=== PATIENT | female | born 1940 | race Caucasian/White ===

== ENCOUNTER 2016-11-05 13:02 | Emergency (ER) | payer MEDICARE ==
[~2016-11-05] VITALS: Ht 177.8 cm; Wt 92.8 kg
[~2016-11-05 13:02] MED LIST: CLON0.2T PO; ERYT.5%O EACH EYE; HYDR-2768 PO; PROZ40CA PO; SYNT25TA PO
[2016-11-05 13:12] VITALS: BP 132/71; PULSE 90; RESP 16; TEMP 98.5; O2SAT 94
[2016-11-05] MEDS ORDERED: ONDANSETRON ODT 4 MG TAB PO ONE (14:00)
--- NOTE | 2016-11-05 14:01 | PD ---
HPI Chief Complaint: Cold / Flu Symptoms Time Seen by Provider: 13:58 Travel History International Travel<30 days: No Contact w/Intl Traveler<30days: No Traveled to known affect area: No History of Present Illness HPI Patient comes in complaining of cough and congestion ongoing for 3 days. Patient states she's been using Pro Air inhaler, allergy medicine, Tylenol, and nasal sprays with minimal relief of her symptoms. Patient states that she coughs to the point of vomiting as well as has vomited after eating. Denies any blood in the vomit. Denies any diarrhea. Patient reports associated generalized body aches and "low-grade fevers". Patient reports that her had a cold she has now caught. Denies any chest pain, shortness of breath, abdominal pain, neck pain, or headaches. PFSH Past Medical History Depression: Yes Diminished Hearing: No Hypertension: Yes Thyroid Disease: Yes Tetanus Vaccination: Unknown Influenza Vaccination: No ?: Not Menopausal: Yes Past Surgical History Hysterectomy: Yes Other Surgery: Yes (vagotomy , esphogeal resection ) Social History Alcohol Use: Yes (occ) Tobacco Use: No Substance Use: No Allergies-Medications (Allergen,Severity, Reaction): Coded Allergies: No Known Allergies (Verified , 11/05/16) Reported Meds & Prescriptions Reported Meds & Active Scripts Active Tessalon Perles (Benzonatate) 100 Mg Cap 200 Mg PO Q8HR PRN Zofran Odt (Ondansetron Odt) 4 Mg Tab 4 Mg SL Q6HR PRN Ilotycin (Erythromycin) 3.5 Gm Oint 1 Applic EACH EYE 5 TIMES A DAY 7 Days Reported Synthroid 25 mcg (Levothyroxine Sodium) 25 Mcg Tab 0 PO Prozac (Fluoxetine HCl) 40 Mg Cap 40 Mg PO DAILY Hctz (Hydrochlorothiazide) 25 Mg Tab 25 Mg PO DAILY Clonidine Hcl (Clonidine HCl) 0.2 Mg Tab 0.2 Mg PO DAILY Review of Systems Except as stated in HPI: all other systems reviewed are Neg Physical Exam Narrative GENERAL: Well-developed, overly nourished, in no acute distress, and non-ill appearing. SKIN: Warm and dry. HEAD: Atraumatic. Normocephalic. EYES: Pupils equal and round. EOMI. No scleral icterus. No injection or drainage. ENT: No nasal bleeding or discharge. Mucous membranes pink and moist. Tympanic membranes pearly guerra bilaterally. Posterior pharynx erythematous without exudate. Uvula is midline. No tenderness to facial sinuses to palpation. NECK: Trachea midline. Supple. No nuclear rigidity. CARDIOVASCULAR: Regular rate and rhythm. No murmur appreciated. RESPIRATORY: No accessory muscle use. No respiratory distress. Clear to auscultation. Breath sounds equal bilaterally. GASTROINTESTINAL: Abdomen soft, non-tender, nondistended. Hepatic and splenic margins not palpable. Normal bowel sounds 4. No pulsatile mass. MUSCULOSKELETAL: No obvious deformities. No clubbing. No cyanosis. No edema. Full range of motion. NEUROLOGICAL: Awake and alert. No obvious cranial nerve deficits. Motor grossly within normal limits. Normal speech. PSYCHIATRIC: Appropriate mood and affect; insight and judgment normal. Data Data Last Documented VS Vital Signs Date Time Temp Pulse Resp B/P Pulse Ox O2 Delivery O2 Flow Rate FiO2 11/05/16 13:12 98.5 90 16 132/71 94 Orders Ondansetron Odt (Zofran Odt) (11/05/16 14:00) Chest, Single Ap (11/05/16 ) Influenzae A/B Antigen (11/05/16 13:56) Group A Rapid Strep Screen (11/05/16 14:00) Strep Culture (Group A) (11/05/16 14:23) MDM Medical Decision Making Medical Screen Exam Complete: Yes Emergency Medical Condition: Yes Differential Diagnosis Pneumonia, influenza, upper respiratory infection, sinusitis, strep pharyngitis , other Narrative Course Patients symptom complex of cough and congestion is consistent with viral URI. The patient is non-ill appearing and is in no respiratory distress and comfortable. The patient moves air well and oxygen saturations are normal. There is no clinical evidence to suggest pneumonia at this time. Plan of care and management were discussed with the patient who agreed with plan. The patient was instructed to follow up with their physician and instructed to return if worsens, progressively worsening shortness of breath or difficulty breathing, persistent fever, chest pains or discomfort, inability to keep medication or fluids down with or without vomiting, or as needed. Patient in no obvious distress upon re-evaluation. All pertinent laboratory/ Radiology result(s) discussed with patient/family. Discussed patient with Dr. Melo, prior to discharge, who is in agreement with plan of care and disposition. Patient was asked if they wanted to speak to my attending, which the patient did not wish to do at this time. Any questions/concerns in reference to patient diagnosis/condition discussed and clarified prior to patient's discharge. Reinforced sheer importance of close follow up with patient 's primary physician or primary care clinic. Instructed patient to return to ED immediately, if symptoms return/worsen. Pt showed understanding of above instructions. Further instructions and recommendations were detailed in discharge paperwork. Pt ambulated without difficulty out of ED at discharge. Diagnosis Primary Impression: Upper respiratory infection, viral Patient Instructions: General Instructions, Upper Respiratory Infection (ED) Additional Instructions: Follow-up with your primary care physician next week. Take all medication as prescribed. Return to the emergency department if symptoms get worse. Med/Other Pt SpecificInfo: Prescription(s) given Scripts Benzonatate (Tessalon Perles)100 Mg [id number] Mg PO Q8HR PRN (COUGH) #20 CAP Ref 0 Prov:Asad Melo MD 11/05/16 Ondansetron Odt (Zofran Odt)4 Mg Tab4 Mg SL Q6HR PRN (Nausea/Vomiting) #10 TAB Ref 0 Prov:Asad Melo MD 11/05/16 Disposition: 01 DISCHARGE HOME Condition: Stable Link Alex Nov 05, 2016 14:01
--- NOTE | 2016-11-05 14:30 | RADHPO ---
EXAM DATE/TIME: 11/05/2016 14:02 [facility] COMPARISON: No previous studies available for comparison. INDICATIONS : Cough. MEDICAL HISTORY : None. SURGICAL HISTORY : None. ENCOUNTER: Initial ACUITY: 3 days PAIN SCORE: 2/10 LOCATION: Bilateral chest FINDINGS: A single view of the chest demonstrates the lungs to be symmetrically aerated without evidence of mas s, infiltrate or effusion. The cardiomediastinal contours are unremarkable. Osseous structures are intact. CONCLUSION: 1. No acute cardiopulmonary findings. Mike Joy MD on November 05, 2016 at 14:28 Board Certified Radiologist. This report was verified electronically.
[2016-11-05] MEDS ORDERED: BENZ100 PO (15:08)
[2016-11-05] MEDS ORDERED: ZOFR4TAB3 SL (15:08)
== END 2016-11-05 15:12 | disposition home or self-care (01) ==
LOC: PHEFT 13:02
DX: J06.9 Acute upper respiratory infection, unspecified (principal)
CPT/HCPCS: 71010; 87081; 87804; 87880; 99283

== ENCOUNTER 2017-05-02 11:34 | Emergency (ER) | payer MEDICARE ==
[~2017-05-02] VITALS: Ht 177.8 cm; Wt 98.0 kg
[~2017-05-02 11:34] MED LIST changes: +BENZ100 PO; +ZOFR4TAB3 SL
[2017-05-02 11:57] VITALS: BP 118/56; PULSE 66; RESP 18; TEMP 96.9; O2SAT 94
[2017-05-02] MEDS ORDERED: HYDR25TA5 PO (12:05)
[2017-05-02] MEDS ORDERED: ZOCO10TA PO (12:05)
[2017-05-02] MEDS ORDERED: CLON0.2T PO (12:05)
[2017-05-02] MEDS ORDERED: LEVO88TA2 PO (12:05)
[2017-05-02] MEDS ORDERED: PROZ40CA PO (12:05)
--- NOTE | 2017-05-02 13:18 | RADRPT ---
EXAM DATE/TIME: 05/02/2017 12:29 [facility] COMPARISON: No previous studies available for comparison. INDICATIONS : Patient hurt foot walking, complains of pain. MEDICAL HISTORY : None. SURGICAL HISTORY : Bunionectomy ENCOUNTER: Initial ACUITY: 2 days PAIN SCORE: 5/10 LOCATION: Left foot FINDINGS: 3 views of the left foot demonstrate no acute fracture or dislocation. Lisfranc joint appears intact. There is severe joint space narrowing and osteophytes at the first and second metatarsophalangeal leatha ints. There is changes at the distal aspect of the third and fourth digits proximal phalanges. No acu te soft tissue abnormality or radiopaque foreign body is identified. CONCLUSION: 1. No fracture or acute abnormality is identified. 2. 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 3. Erosive osteoarthritis type change at the third and fourth digit PIP joints. Vijay Reyes MD on May 02, 2017 at 13:15 Board Certified Radiologist. This report was verified electronically.
--- NOTE | 2017-05-02 13:20 | RADRPT ---
EXAM DATE/TIME: 05/02/2017 12:36 [facility] COMPARISON: No previous studies available for comparison. INDICATIONS : Hurt ankle while walking, complains of pain. MEDICAL HISTORY : None. SURGICAL HISTORY : Bunionectomy ENCOUNTER: Initial ACUITY: 2 days PAIN SCORE: 5/10 LOCATION: Left ankle FINDINGS: 3 views the left ankle demonstrate no fracture or dislocation. Ankle mortise is intact. Mineralizatio n is decreased and there is no significant arthropathy. No radiopaque foreign body is identified. Th ere is lateral ankle soft tissue swelling. CONCLUSION: Mild lateral ankle soft tissue swelling. No fracture is identified. Vijay Reyes MD on May 02, 2017 at 13:18 Board Certified Radiologist. This report was verified electronically.
--- NOTE | 2017-05-02 13:26 | PD ---
HPI Chief Complaint: Musculoskeletal Complaint Time Seen by Provider: 12:45 Travel History International Travel<30 days: No Contact w/Intl Traveler<30days: No Traveled to known affect area: No History of Present Illness HPI 76-year-old female with chief complaint of left ankle and foot pain status post twisting injury 2 days ago. Patient has pain to the medial and lateral aspect of the ankle as well as over the dorsal aspect of the foot. She denies numbness or tingling extremity. She reports pain is worse with range of motion of the ankle and weightbearing. Relieved with rest. Pain severity 4/10. PFSH Past Medical History Depression: Yes Diminished Hearing: No Hypertension: Yes Thyroid Disease: Yes Influenza Vaccination: No ?: Not Menopausal: Yes Past Surgical History Hysterectomy: Yes Other Surgery: Yes (vagotomy , esphogeal resection ) Social History Alcohol Use: Yes (COUPLE TIMES PER WEEK) Tobacco Use: No Substance Use: No Allergies-Medications (Allergen,Severity, Reaction): Coded Allergies: No Known Allergies (Verified , 11/05/16) Reported Meds & Prescriptions Reported Meds & Active Scripts Active Reported Zocor (Simvastatin) 10 Mg Tab 10 Mg PO DAILY Levothyroxine (Levothyroxine Sodium) 88 Mcg Tab 88 Mcg PO DAILY Prozac (Fluoxetine HCl) 40 Mg Cap 40 Mg PO DAILY Hydrochlorothiazide 25 Mg Tab 25 Mg PO DAILY Review of Systems Except as stated in HPI: all other systems reviewed are Neg Physical Exam Narrative GENERAL: Well-nourished, well-developed patient. SKIN: Focused skin assessment warm/dry. HEAD: Normocephalic. EYES: No scleral icterus. No injection or drainage. NECK: Supple, trachea midline. No JVD or lymphadenopathy. CARDIOVASCULAR: Regular rate and rhythm without murmurs, gallops, or rubs. RESPIRATORY: Breath sounds equal bilaterally. No accessory muscle use. GASTROINTESTINAL: Abdomen soft, non-tender, nondistended. MUSCULOSKELETAL: No cyanosis, or edema. Left lower extremity: Notable swelling to the lateral medial aspect of the ankle. TTP over lateral and medial malleolus and dorsal aspect of the foot. 2+ distal pulses. Joints are stable. No deformity. Extremities neurovascularly intact. BACK: Nontender without obvious deformity. No CVA tenderness. Data Data Last Documented VS Vital Signs Date Time Temp Pulse Resp B/P Pulse Ox O2 Delivery O2 Flow Rate FiO2 05/02/17 13:44 72 18 146/72 97 21 05/02/17 11:57 96.9 Orders Ankle, Complete ([id number]) (05/02/17 ) Foot, Complete (Tmm3ual) (05/02/17 ) Leonel Bandage (05/02/17 13:26) Splint Or Brace Apply/Monitor (05/02/17 13:32) MDM Medical Decision Making Medical Screen Exam Complete: Yes Emergency Medical Condition: Yes Differential Diagnosis Ankle sprain versus fracture, midfoot sprain versus fracture Narrative Course 76-year-old female with chief complaint of left ankle and foot pain status post twisting injury 2 days ago. Patient has pain to the medial and lateral aspect of the ankle as well as over the dorsal aspect of the foot. Mild swelling noted. The extremity is neurovascular intact. X-rays negative for fracture. Patient be treated for ankle sprain. Leonel wrap applied. Instructed to ice and elevate the extremity. Follow-up with PCP. Patient verbalizes understanding and agrees to plan Diagnosis Primary Impression: Ankle sprain Qualified Code: S93.402A - Sprain of left ankle, unspecified ligament, initial encounter Additional Impression: Foot sprain Qualified Code: S93.602A - Sprain of left foot, initial encounter Referrals: Primary Care Physician Additional Instructions: Review the Leonel wrap as described. Ice and elevate the extremity. Take [id number] Motrin and/or Tylenol as needed for pain. Follow-up with her primary care doctor. Disposition: 01 DISCHARGE HOME Condition: Stable Katharine Escalante May 02, 2017 13:26
[2017-05-02 13:44] VITALS: BP 146/72
== END 2017-05-02 13:45 | disposition home or self-care (01) ==
LOC: PHEFT 11:34
DX: S93.402A Sprain of unspecified ligament of left ankle, initial encounter (principal); S93.602A Unspecified sprain of left foot, initial encounter; X50.1XXA Overexertion from prolonged static or awkward postures, initial encounter
CPT/HCPCS: 73610; 73630; 99283

== ENCOUNTER 2017-05-12 14:45 | Emergency (ER) | payer MEDICARE ==
[~2017-05-12] VITALS: Ht 177.8 cm; Wt 98.5 kg
[~2017-05-12 14:45] MED LIST changes: -BENZ100 PO; -ERYT.5%O EACH EYE; -HYDR-2768 PO; +HYDR25TA5 PO; +LEVO88TA2 PO; -SYNT25TA PO; +ZOCO10TA PO; -ZOFR4TAB3 SL
[2017-05-12 15:06] VITALS: BP 139/63; PULSE 68; RESP 16; TEMP 98.1; O2SAT 94
[2017-05-12] MEDS ORDERED: ACETAMINOPHEN/HYDROcodone 325 MG/5 MG TAB PO ONE (15:15)
--- NOTE | 2017-05-12 15:19 | PD ---
HPI . Left foot pain Chief Complaint: Injury Time Seen by Provider: 15:13 Travel History International Travel<30 days: No Contact w/Intl Traveler<30days: No Traveled to known affect area: No History of Present Illness HPI Patient presents with a chief complaint of left lateral foot pain. She states that she was seen here a week ago and diagnosed with a sprained ankle and foot. It is being treated with an Leonel wrap, Tylenol and ice and elevation as needed. She states that she stepped out of the shower today and heard and felt a pop in her left lateral foot. She comes in complaining with increased pain since then. She rates the pain is 9/10. PFSH Past Medical History Depression: Yes Cardiovascular Problems: Yes (htn on meds) Diminished Hearing: No Hypertension: Yes Thyroid Disease: Yes ?: Not Menopausal: Yes Past Surgical History Hysterectomy: Yes Other Surgery: Yes (vagotomy , esphogeal resection ) Social History Alcohol Use: Yes (COUPLE TIMES PER WEEK) Tobacco Use: No Substance Use: No Allergies-Medications (Allergen,Severity, Reaction): Coded Allergies: No Known Allergies (Verified , 05/12/17) Reported Meds & Prescriptions Reported Meds & Active Scripts Active Reported Clonazepam 0.5 Mg Tab 0.5 Mg PO DAILY PRN Omeprazole 20 Mg Tab 20 Mg PO DAILY Zocor (Simvastatin) 10 Mg Tab 10 Mg PO DAILY Levothyroxine (Levothyroxine Sodium) 88 Mcg Tab 88 Mcg PO DAILY Prozac (Fluoxetine HCl) 40 Mg Cap 40 Mg PO DAILY Clonidine (Clonidine HCl) 0.2 Mg Tab 0.2 Mg PO BID Hydrochlorothiazide 25 Mg Tab 25 Mg PO DAILY Review of Systems Except as stated in HPI: all other systems reviewed are Neg Musculoskeletal: Positive: Pain (left lateral foot pain) Physical Exam Narrative GENERAL: Awake and alert and in no acute distress. SKIN: Warm and dry. HEAD: Atraumatic. Normocephalic. EYES: Pupils equal and round. NECK: Trachea midline. CARDIOVASCULAR: Regular rate and rhythm. RESPIRATORY: No accessory muscle use. MUSCULOSKELETAL: No obvious deformities. Her left ankle and foot are tightly wrapped with an Leonel wrap. This was removed. She has tenderness to palpation of the left fifth metatarsal head. No significant bruising or swelling in that area. NEUROLOGICAL: Awake and alert. No obvious cranial nerve deficits. Motor grossly within normal limits. Normal speech. PSYCHIATRIC: Appropriate mood and affect; insight and judgment normal. Data Data Last Documented VS Vital Signs Date Time Temp Pulse Resp B/P (MAP) Pulse Ox O2 Delivery O2 Flow Rate FiO2 05/12/17 15:06 98.1 68 16 139/63 (88) 94 Orders Orders Foot, Complete ([id number]) (05/12/17 15:14) Acetamin-Hydrocod 325-5 Mg ([place] 5-325 (05/12/17 15:15) MDM Medical Decision Making Medical Screen Exam Complete: Yes Emergency Medical Condition: Yes Differential Diagnosis Differential diagnosis of extremity trauma includes but is not limited to fracture, sprain or strain, dislocation, contusion Narrative Course Patient presents with a repeat injury of her left foot. She initially injured it a week ago. She was stepping out of the shower today felt and heard a pop in the area of the left fifth metatarsal head. She presented with increased pain. Last Impressions Foot X-Ray 05/12/17 1514 Signed Impressions: Service Date/Time: April 15:22 - CONCLUSION: Chronic changes and no evidence for acute fracture. Pedro Medrano MD The x-ray was independently viewed by me. Diagnosis Primary Impression: Foot sprain Qualified Codes: S93.602D - Unspecified sprain of left foot, subsequent encounter Patient Instructions: General Instructions, RICE Therapy (ED) Med/Other Pt SpecificInfo: Prescription(s) given Scripts Tramadol (Ultram) 50 Mg Tab 50 MG PO Q4H Y for PAIN, #12 TAB 0 Refills Prov: Shireen Sifuentes MD 05/12/17 Disposition: 01 DISCHARGE HOME Condition: Stable Shireen Sifuentes MD May 12, 2017 15:19
--- NOTE | 2017-05-12 15:36 | RADRPT ---
EXAM DATE/TIME: 05/12/2017 15:22 [facility] COMPARISON: No previous studies available for comparison. INDICATIONS : Patient states sprained foot 1 week ago, and today stood on foot and heard it pop. Complains of pain. MEDICAL HISTORY : None. SURGICAL HISTORY : None. ENCOUNTER: Subsequent ACUITY: 1 day PAIN SCORE: 9/10 LOCATION: Left lateral foot FINDINGS: No definite fractures, or dislocations are identified. No definite lytic or sclerotic lesion is seen . Significant osteoarthritic changes present within multiple joints worse involving the first and sec ond metatarsophalangeal joints. Calcaneal spurs are present at the attachment site of the plantar apo neurosis and Achilles tendon. CONCLUSION: Chronic changes and no evidence for acute fracture. Pedro Medrano MD on May 12, 2017 at 15:33 Board Certified Radiologist. This report was verified electronically.
[2017-05-12] MEDS ORDERED: OMEP20TA PO (15:41)
[2017-05-12] MEDS ORDERED: CLON0.5T PO (15:41)
[2017-05-12] MEDS ORDERED: ULTR50TA5 PO (15:43)
[2017-05-12 16:06] VITALS: RESP 16
== END 2017-05-12 16:06 | disposition home or self-care (01) ==
LOC: PHEFT 14:45
DX: S93.602A Unspecified sprain of left foot, initial encounter (principal); X58.XXXA Exposure to other specified factors, initial encounter; I10 Essential (primary) hypertension; E07.9 Disorder of thyroid, unspecified
CPT/HCPCS: 73630; 99283

== ENCOUNTER 2017-12-18 15:44 | Emergency (ER) | payer MEDICARE ==
[~2017-12-18] VITALS: Ht 175.3 cm; Wt 97.4 kg
[~2017-12-18 15:44] MED LIST changes: +CLON0.5T PO; +OMEP20TA93 PO; +TRAM50 PO
[2017-12-18 15:46] VITALS: BP 158/71; PULSE 71; RESP 20; TEMP 97.6; O2SAT 92; O2SAT 94
[2017-12-18] MEDS ORDERED: FLUT1SPR5 EACH NARE ×2 (16:16→16:47)
[2017-12-18] MEDS ORDERED: CETI10 PO (16:16)
[2017-12-18] MEDS ORDERED: PROMSYP6 PO (16:47)
[2017-12-18] MEDS ORDERED: AUGM875T3 PO (16:47)
--- NOTE | 2017-12-18 16:50 | PD ---
HPI Chief Complaint: Cold / Flu Symptoms Time Seen by Provider: 16:31 Travel History International Travel<30 days: No Contact w/Intl Traveler<30days: No Traveled to known affect area: No History of Present Illness HPI 77-year-old female here with sinus pain and pressure 1 week. She is reporting purulent nasal discharge. She is also reporting a persistent cough. She believes she has a sinus infection. She reports she has frequent sinus infections. Symptom severity is moderate. No aggravating or alleviating factors. PFSH Past Medical History Depression: Yes Cardiovascular Problems: Yes (htn on meds) High Cholesterol: Yes Diminished Hearing: No GERD: Yes Hypertension: Yes Immunizations Current: Yes Thyroid Disease: Yes Tetanus Vaccination: < 5 Years Influenza Vaccination: Yes ?: Not Menopausal: Yes Past Surgical History Hysterectomy: Yes Other Surgery: Yes (vagotomy , esphogeal resection ) Social History Alcohol Use: Yes (COUPLE TIMES PER WEEK) Tobacco Use: No Substance Use: No Allergies-Medications (Allergen,Severity, Reaction): Coded Allergies: No Known Allergies (Verified Adverse Reaction, Unknown, 12/18/17) Reported Meds & Prescriptions Reported Meds & Active Scripts Active Promethazine VC-Codeine Liq (Seqbyhrwd-Tswqupxodkje-Aeobppo Liq) 6.25-5-10 mg/ 5Ml Syp 5 Ml PO Q6HR PRN Flonase Nasal [place] (Fluticasone Nasal [place]) 50 Mcg/Act [place] 50 Mcg EACH NARE BID Augmentin (Amoxicillin-Clavulanate) 875-125 Mg Tab 1 Tab PO BID Reported Flonase Nasal [place] (Fluticasone Nasal [place]) 50 Mcg/Act [place] 50 Mcg EACH NARE BID Cetirizine (Cetirizine HCl) 10 Mg Tab 10 Mg PO DAILY Clonazepam 0.5 Mg Tab 0.5 Mg PO DAILY PRN Levothyroxine (Levothyroxine Sodium) 88 Mcg Tab 88 Mcg PO DAILY Prozac (Fluoxetine HCl) 40 Mg Cap 40 Mg PO DAILY Clonidine (Clonidine HCl) 0.2 Mg Tab 0.2 Mg PO BID Hydrochlorothiazide 25 Mg Tab 25 Mg PO DAILY Review of Systems Except as stated in HPI: all other systems reviewed are Neg General / Constitutional: No: Fever Eyes: No: Visual changes HENT: Positive: Congestion Cardiovascular: No: Chest Pain or Discomfort Respiratory: Positive: Cough Gastrointestinal: No: Abdominal Pain Genitourinary: No: Dysuria Musculoskeletal: No: Pain Skin: No Rash Physical Exam Narrative GENERAL: Alert and well-appearing 77-year-old female SKIN: Warm and dry. HEAD: Normocephalic. EYES: No injection or drainage. Ear/nose/throat: +TTP maxillary sinuses. Reported purulent nasal discharge NECK: Supple CARDIOVASCULAR: Regular rate and rhythm without murmurs, gallops, or rubs. RESPIRATORY: Breath sounds equal bilaterally. No accessory muscle use. No wheezing, rales, or rhonchi. Occasional cough noted GASTROINTESTINAL: Abdomen soft, non-tender, nondistended. MUSCULOSKELETAL: No cyanosis, or edema. BACK: Nontender without obvious deformity. No CVA tenderness. Data Data Last Documented VS Vital Signs Date Time Temp Pulse Resp B/P (MAP) Pulse Ox O2 Delivery O2 Flow Rate FiO2 12/18/17 15:46 97.6 71 20 158/71 (100) 94 Orders Orders Ed Discharge Order (12/18/17 16:50) MDM Medical Decision Making Medical Screen Exam Complete: Yes Emergency Medical Condition: Yes Differential Diagnosis Sinusitis, URI, bronchitis, pneumonia Narrative Course 77-year-old female here with sinus pain and pressure. She is also reporting a cough. She is nontoxic appearing. Her vital signs are stable. Diagnosis Primary Impression: Sinusitis Qualified Codes: J32.9 - Chronic sinusitis, unspecified Additional Impression: Cough Referrals: Primary Care Physician Additional Instructions: Medication as directed. Drink plenty fluids. Follow-up with her primary doctor. Scripts Gskjoiari-Qpmrywtptdjc-Qzmemor Liq (Promethazine VC-Codeine Liq) 6.25-5-10 mg/ 5Ml Syp 5 ML PO Q6HR Y for COUGH, #120 ML Prov: Katharine EscalanteP 12/18/17 Fluticasone Nasal [place] (Flonase Nasal [place]) 50 Mcg/Act [place] 50 MCG EACH NARE BID for Allergies, #1 BOTTLE 0 Refills Prov: Katharine Escalante 12/18/17 Amoxicillin-Clavulanate (Augmentin) 875-125 Mg Tab 1 TAB PO BID for Infection, #20 TAB 0 Refills Prov: Katharine Escalante 12/18/17 Disposition: 01 DISCHARGE HOME Condition: Stable Katharine Escalante Dec 18, 2017 16:50
== END 2017-12-18 16:55 | disposition home or self-care (01) ==
LOC: PHEFT 15:44
DX: J32.9 Chronic sinusitis, unspecified (principal); R05 Cough; F32.9 Major depressive disorder, single episode, unspecified; I10 Essential (primary) hypertension; E78.00 Pure hypercholesterolemia, unspecified; K21.9 Gastro-esophageal reflux disease without esophagitis; E07.9 Disorder of thyroid, unspecified; Z79.899 Other long term (current) drug therapy
CPT/HCPCS: 99283

== ENCOUNTER 2018-02-04 13:19 | Emergency (ER) | payer MEDICARE ==
[~2018-02-04] VITALS: Ht 177.8 cm; Wt 97.0 kg
[~2018-02-04 13:19] MED LIST changes: +AUGM875T3 PO; +CETI10 PO; +FLUT1SPR5 EACH NARE; -OMEP20TA93 PO; +PROMSYP6 PO; -TRAM50 PO; -ZOCO10TA PO
[2018-02-04 13:23] VITALS: BP 133/66; PULSE 76; RESP 16; TEMP 98.5; O2SAT 95
[2018-02-04] MEDS ORDERED: SIMV10TA PO (13:31)
[2018-02-04] MEDS ORDERED: AUGM875T3 PO (13:43)
[2018-02-04] MEDS ORDERED: PROMSYP6 PO (13:43)
--- NOTE | 2018-02-04 13:43 | PD ---
HPI Chief Complaint: ENT Complaint Time Seen by Provider: 13:36 Travel History International Travel<30 days: No Contact w/Intl Traveler<30days: No Traveled to known affect area: No History of Present Illness HPI 77-year-old female here with sinus pain and pressure 1 week. She is reporting purulent nasal discharge. She is also reporting a persistent cough. She believes she has a sinus infection. She reports she has frequent sinus infections. Symptom severity is moderate. No aggravating or alleviating factors. Denies chest pain or shortness of breath. PFSH Past Medical History Depression: Yes Cardiovascular Problems: Yes (htn on meds) High Cholesterol: Yes Diminished Hearing: No GERD: Yes Hypertension: Yes Immunizations Current: Yes Thyroid Disease: Yes Menopausal: Yes Past Surgical History Hysterectomy: Yes Other Surgery: Yes (vagotomy , esphogeal resection ) Social History Alcohol Use: Yes (COUPLE TIMES PER WEEK) Tobacco Use: No Substance Use: No Allergies-Medications (Allergen,Severity, Reaction): Coded Allergies: No Known Allergies (Verified Adverse Reaction, Unknown, 02/04/18) Reported Meds & Prescriptions Reported Meds & Active Scripts Active Augmentin (Amoxicillin-Clavulanate) 875-125 Mg Tab 1 Tab PO BID Promethazine VC-Codeine Liq (Lwaftlasv-Bgdbllasmmif-Ggppgij Liq) 6.25-5-10 mg/ 5Ml Syp 5 Ml PO Q6HR PRN Reported Simvastatin 10 Mg Tab 10 Mg PO DAILY Clonazepam 0.5 Mg Tab 1 Mg PO DAILY PRN Levothyroxine (Levothyroxine Sodium) 88 Mcg Tab 88 Mcg PO DAILY Prozac (Fluoxetine HCl) 40 Mg Cap 40 Mg PO DAILY Hydrochlorothiazide 25 Mg Tab 25 Mg PO DAILY Review of Systems Except as stated in HPI: all other systems reviewed are Neg General / Constitutional: No: Fever Eyes: No: Visual changes HENT: Positive: Congestion Cardiovascular: No: Chest Pain or Discomfort Respiratory: Positive: Cough Gastrointestinal: No: Abdominal Pain Genitourinary: No: Dysuria Physical Exam Narrative GENERAL: Alert and well-appearing 77-year-old female SKIN: Warm and dry. HEAD: Normocephalic. EYES: No scleral icterus. No injection or drainage. ENT: + Tenderness of the maxillary sinuses. No pharyngeal erythema. Uvula midline. Airway patent. NECK: Supple, trachea midline. No JVD or lymphadenopathy. CARDIOVASCULAR: Regular rate and rhythm without murmurs, gallops, or rubs. RESPIRATORY: Breath sounds equal bilaterally. No accessory muscle use. GASTROINTESTINAL: Abdomen soft, non-tender, nondistended. MUSCULOSKELETAL: No cyanosis, or edema. BACK: Nontender without obvious deformity. No CVA tenderness. Data Data Last Documented VS Vital Signs Date Time Temp Pulse Resp B/P (MAP) Pulse Ox O2 Delivery O2 Flow Rate FiO2 02/04/18 13:23 98.5 76 16 133/66 (88) 95 MDM Medical Decision Making Medical Screen Exam Complete: Yes Emergency Medical Condition: Yes Differential Diagnosis Sinusitis, bronchitis, pneumonia, influenza, URI Narrative Course 77-year-old female here with recurrent sinusitis and URI-like symptoms. She is nontoxic appearing. She will be treated with Augmentin and antitussives. Diagnosis Primary Impression: Sinusitis Qualified Codes: J01.01 - Acute recurrent maxillary sinusitis Referrals: Primary Care Physician Scripts Amoxicillin-Clavulanate (Augmentin) 875-125 Mg Tab 1 TAB PO BID for Infection, #20 TAB 0 Refills Prov: Katharine Escalante 02/04/18 Dcjkqixwc-Vohuwxpuexnm-Cjnxjzj Liq (Promethazine VC-Codeine Liq) 6.25-5-10 mg/ 5Ml Syp 5 ML PO Q6HR Y for COUGH, #120 ML Prov: Katharine Escalante 02/04/18 Disposition: 01 DISCHARGE HOME Condition: Stable Katharine Escalante February 04, 2018 13:43
== END 2018-02-04 13:52 | disposition home or self-care (01) ==
LOC: PHEFT 13:19
DX: J01.01 Acute recurrent maxillary sinusitis (principal); R05 Cough; I10 Essential (primary) hypertension; E78.00 Pure hypercholesterolemia, unspecified; K21.9 Gastro-esophageal reflux disease without esophagitis
CPT/HCPCS: 99283